=== PATIENT | female | born 1935 | race Caucasian/White ===

== ENCOUNTER 2018-11-11 07:47 | Emergency (ER) | payer OTHER ==
[~2018-11-11] VITALS: Ht 157.5 cm; Wt 65.8 kg
[~2018-11-11 07:47] MED LIST: ENALAPRIL MALEA10 MG; FOLIC ACID1 MG; FOSAMAX70 MG; INDOMETHACIN50 MG; LASIX20 MG; SIMVASTATIN40 MG; ZETIA10 MG
== END 2018-11-11 11:21 | disposition home or self-care (01) ==
LOC: ER 07:47
DX: S73.191A Other sprain of right hip, initial encounter (principal); S76.811A Strain of other specified muscles, fascia and tendons at thigh level, right thigh, initial encounter; W01.198A Fall on same level from slipping, tripping and stumbling with subsequent striking against other object, initial encounter; Y93.01 Activity, walking, marching and hiking; Y92.480 Sidewalk as the place of occurrence of the external cause; Y99.8 Other external cause status